=== PATIENT | male | born 1985 | race American Indian/Alaskan Native ===

== ENCOUNTER 2020-12-05 02:19 | Emergency (ER) | payer SELFPAY ==
[2020-12-05 04:54] LABS: Basophils % (Auto) 0.6 % (0.0-1.8); Eosinophils # (Auto) 0.2 K/mm3 (0.0-0.4); Eosinophils % (Auto) 2.9 % (0.0-4.3); Hematocrit 37.8 % (35.5-45.6); Hemoglobin 12.7 gm/dl (11.8-15.2); Lymphocytes # (Auto) 1.9 K/mm3 (1.2-5.4); Lymphocytes % (Auto) 26.1 % (13.4-35.0); Mean Corpuscular HGB Conc 34 % (32-34); Mean Corpuscular Volume 96 fl (84-94); Monocytes # (Auto) 0.8 K/mm3 (0.0-0.8); Monocytes % (Auto) 10.8 % (0.0-7.3); Platelet Count 268 K/mm3 (140-440); Red Blood Count 3.94 M/mm3 (3.65-5.03); Red Cell Distribution Width 13.5 % (13.2-15.2)
[2020-12-05 05:11] LABS: Alanine Aminotransferase 10 units/L (7-56); Albumin 4.3 g/dL (3.9-5); BUN/Creatinine Ratio 11; Blood Urea Nitrogen 13 mg/dL (9-20); Calcium 9.1 mg/dL (8.4-10.2); Hemolysis Index 26
[2020-12-05] MEDS ORDERED: SODIUM CHLORIDE 0.9% 1000 ML 1,000 ML IV ONE (06:07)
[2020-12-05] MEDS ORDERED: HYOSCYAMINE SUBL 0.125 MG TAB SL ONE (06:07)
[2020-12-05] MEDS ORDERED: KETOROLAC 30 MG/1 ML INJ IV STA (06:07)
[2020-12-05] MEDS ORDERED: ONDANSETRON 4 MG ODT TAB PO STA (06:07)
--- NOTE | 2020-12-05 06:25 | Emergency Department Report ---
<BISI MCELROY - Last Filed: 12/05/20 06:20> ED Abdominal Pain HPI - General Chief Complaint: Abdominal Pain Stated Complaint: ABD PAIN Source: patient Mode of arrival: Ambulatory Limitations: No Limitations - History of Present Illness MD Complaint: abdominal pain Location: diffuse Radiation: suprapubic Severity: mild, moderate Quality: aching, dull Improves With: nothing Worsens With: nothing Associated Symptoms: denies: nausea, vomiting, diarrhea, fever, constipation, dysuria, hematemesis, melena, hematuria, anorexia, syncope - Related Data Previous Rx's Medication Instructions Recorded Last Taken Type Dicyclomine [Bentyl] 20 mg PO QID #20 tablet 12/05/20 Unknown Rx Ondansetron [Zofran Odt] 4 mg PO Q6H PRN #20 tab.rapdis 12/05/20 Unknown Rx Allergies Allergy/AdvReac Type Severity Reaction Status Date / Time No Known Allergies Allergy Unverified 12/05/20 04:19 ED Review of Systems Comment: All other systems reviewed and negative ED Past Medical Hx - Past Medical History Previous Medical History?: Yes Hx Kidney Stones: Yes - Surgical History Past Surgical History?: Yes Hx Appendectomy: Yes - Social History Smoking Status: Never Smoker Substance Use Type: Marijuana - Medications Home Medications: Home Medications Medication Instructions Recorded Confirmed Last Taken Type Dicyclomine [Bentyl] 20 mg PO QID #20 tablet 12/05/20 Unknown Rx Ondansetron [Zofran Odt] 4 mg PO Q6H PRN #20 tab.rapdis 12/05/20 Unknown Rx ED Physical Exam - General Limitations: No Limitations General appearance: alert, in no apparent distress - Head Head exam: Present: atraumatic, normocephalic. Absent: normal inspection - Eye Eye exam: Present: normal appearance, PERRL, EOMI Pupils: Present: normal accommodation - ENT ENT exam: Present: normal exam, normal orophraynx, mucous membranes moist, TM's normal bilaterally - Neck Neck exam: Present: normal inspection - Respiratory Respiratory exam: Present: normal lung sounds bilaterally. Absent: respiratory distress, wheezes, rales, rhonchi, chest wall tenderness, accessory muscle use, decreased breath sounds - Cardiovascular Cardiovascular Exam: Present: regular rate, normal rhythm. Absent: systolic murmur, diastolic murmur, rubs, gallop - GI/Abdominal GI/Abdominal exam: Present: soft, normal bowel sounds - Rectal Rectal exam: Present: deferred - Extremities Exam Extremities exam: Present: normal inspection - Back Exam Back exam: Present: normal inspection - Neurological Exam Neurological exam: Present: alert, oriented X3 - Psychiatric Psychiatric exam: Present: normal affect, normal mood - Skin Skin exam: Present: warm, dry, intact, normal color. Absent: rash ED Medical Decision Making - Lab Data Result diagrams: 12/05/20 04:31 12/05/20 04:31 ED Disposition Clinical Impression: Nonspecific abdominal pain Disposition: DC-01 TO HOME OR SELFCARE Condition: Stable Instructions: Abdominal Pain, Adult, [id number] Additional Instructions: Take Tylenol every 4 hours needed for pain. Take Bentyl as directed for pain. Take Zofran as needed for nausea/vomiting. Rest. Drink plenty of fluids. Wash hands frequently to prevent disease transmission. Do not share food or drinks with others. Gradually advance diet slowly as tolerated. Follow-up with your primary care provider this week. Call tomorrow to schedule an appointment. Return to the emergency department immediately for new or worsening symptoms. Prescriptions: Dicyclomine [Bentyl] 20 mg PO QID #20 tablet Ondansetron [Zofran Odt] 4 mg PO Q6H PRN #20 tab.rapdis PRN Reason: Nausea Referrals: PRIMARY CARE,MD [Primary Care Provider] - 3-5 Days <CAMRYN LIZARRAGA - Last Filed: 12/05/20 10:24> ED Review of Systems ROS: Stated complaint: ABD PAIN Other details as noted in HPI ED Course Vital Signs 12/05/20 12/05/20 12/05/20 04:17 06:39 08:09 Temperature 98.6 F Pulse Rate 72 69 Respiratory 18 20 18 Rate Blood Pressure 140/94 Blood Pressure 112/71 [Right] O2 Sat by Pulse 100 97 Oximetry ED Medical Decision Making - Lab Data Result diagrams: 12/05/20 04:31 12/05/20 04:31 - Radiology Data [facility] [address] [place] [address] Cat Scan Report Signed Patient: CHUCK EMERY MR#: [id number] : 1985 Acct:[id number] Age/Sex: 34 / M ADM Date: 12/05/20 Loc: ED Attending Dr: Ordering Physician: CHANDNI MAHAN Date of Service: 12/05/20 Procedure(s): CT abdomen pelvis w con Accession Number(s): [id number] cc: CHANDNI MAHAN CT abdomen pelvis w con INDICATION / CLINICAL INFORMATION: Upper abdominal pain for 2 days. TECHNIQUE: Axial CT imaging of abdomen and pelvis was obtained with IV contrast. Coronal and sagittal reformatted imaging obtained and reviewed. All CT scans at this location are performed using CT dose reduction for ALARA by means of automated exposure control. COMPARISON: None available. FINDINGS: CT abdomen with contrast demonstrates grossly normal appearance of the spleen, pancreas, kidneys, and adrenal glands. No obvious gallbladder pathology or biliary dilatation. There is a 2.2 cm round hypodense mass in the right hepatic lobe. Additionally there is diffuse hypodensity throughout the left lobe of the liver. The left lobe findings may be related to geographic fatty infiltration. CT pelvis with contrast does not demonstrate any pelvic mass, free fluid, or focal inflammatory change. The appendix appears to have been surgically removed. The GI tract is abnormal. There are numerous nondilated fluid-filled loops of small bowel throughout the abdomen and pelvis with mucosal enhancement. The appearance is very suggestive for enteritis and clinical correlation is recommended. Visualized lung bases are grossly clear. No acute pulmonary or pleural disease noted. Review of osseous structures is unremarkable. IMPRESSION: 1. Overall appearance of bowel is very suggestive for enteritis. Please correlate with clinical symptoms and presentation. 2. Incidental finding of 2.2 cm mass in the right hepatic lobe, nonspecific. Ultrasound may be required for further evaluation of this finding. Signer Name: Esme Corona MD Signed: 12/05/2020 8:01 AM Workstation Name: [id number] Transcribed By: JR Dictated By: Esme Corona MD Electronically Authenticated By: Esme Corona MD Signed Date/Time: 12/05/20 0801 DD/ [id number] TD/TT: - Medical Decision Making Care of patient transferred to Camryn Lizarraga PA-C at change of shift pending radiology results. On reevaluation, patient is stable and symptoms have improved. Repeat abdominal exam is benign. Labs are unremarkable. CT of the abdomen/pelvis suggestive of enteritis. Vital signs are stable. No clinical evidence to warrant further diagnostic work-up on an emergent basis at this time. History and exam findings are most suggestive of viral intestinal infection. Patient will be discharged home with medications for symptomatic relief and advised to follow-up with local primary care provider this week for reevaluation. Outpatient follow-up regarding nonspecific hepatic nodule also advised. Patient expressed understanding and is agreeable to plan of care. Disease transmission precautions discussed. Strict return precautions provided. Repeat exam is unremarkable and benign. History, exam, diagnostic testing, and current condition do not suggest worrisome pathology to warrant further testing, continued ED treatment, admission, or surgical evaluation at this point. Given the low probability of a significant medical illness, it would be more likely to result in harm than benefit to perform further testing at this stage. Discussed findings, presumptive diagnosis, need for follow-up and specific signs/symptoms that should prompt immediate return to the emergency department. Instructions were explained in detail to the patient in addition to giving written discharge information. Patient expressed understanding and was given the opportunity to ask questions, all of which were satisfactorily answered prior to discharge home. Critical care attestation.: If time is entered above; I have spent that time in minutes in the direct care of this critically ill patient, excluding procedure time. ED Disposition Is pt being admited?: No Does the pt Need Aspirin: No Time of Disposition: 09:11
--- NOTE | 2020-12-05 08:05 | Cat Scan Report ---
CT abdomen pelvis w con INDICATION / CLINICAL INFORMATION: Upper abdominal pain for 2 days. TECHNIQUE: Axial CT imaging of abdomen and pelvis was obtained with IV contrast. Coronal and sagittal reformatte d imaging obtained and reviewed. All CT scans at this location are performed using CT dose reduction for ALARA by means of automated exposure control. COMPARISON: None available. FINDINGS: CT abdomen with contrast demonstrates grossly normal appearance of the spleen, pancreas, kidneys, an d adrenal glands. No obvious gallbladder pathology or biliary dilatation. There is a 2.2 cm round hyp odense mass in the right hepatic lobe. Additionally there is diffuse hypodensity throughout the left lobe of the liver. The left lobe findings may be related to geographic fatty infiltration. CT pelvis with contrast does not demonstrate any pelvic mass, free fluid, or focal inflammatory royal e. The appendix appears to have been surgically removed. The GI tract is abnormal. There are numerous nondilated fluid-filled loops of small bowel throughout the abdomen and pelvis with mucosal enhancement. The appearance is very suggestive for enteritis and clinical correlation is recommended. Visualized lung bases are grossly clear. No acute pulmonary or pleural disease noted. Review of osseous structures is unremarkable. IMPRESSION: 1. Overall appearance of bowel is very suggestive for enteritis. Please correlate with clinical sympt oms and presentation. 2. Incidental finding of 2.2 cm mass in the right hepatic lobe, nonspecific. Ultrasound may be requir ed for further evaluation of this finding. Signer Name: Esme Corona MD Signed: 12/05/2020 8:01 AM Workstation Name: [id number]
[2020-12-05 08:10] VITALS: BP 112/71
== END 2020-12-05 09:36 | disposition home or self-care (01) ==
LOC: ED 02:19
DX: R10.9 Unspecified abdominal pain (principal); F12.90 Cannabis use, unspecified, uncomplicated; Z79.899 Other long term (current) drug therapy; Z90.49 Acquired absence of other specified parts of digestive tract
CPT/HCPCS: 36415; 74177; 80053; 83690; 83735; 85025; 96361; 96374; 99284; J1885; J7030; Q9967; Q0162